=== PATIENT | female | born 1960 | race Caucasian/White ===

== ENCOUNTER 2017-05-20 18:33 | Inpatient (IN) | payer MEDICAID ==
[~2017-05-20] VITALS: Ht 157.5 cm; Wt 40.8 kg
[2017-05-20 18:42] VITALS: BP 145/99
--- NOTE | 2017-05-20 18:54 | NUR ---
WHEEL CHAIR ASSISTED TO BED 12
--- NOTE | 2017-05-20 18:55 | NUR ---
BIB FROM [facility] BY RESCARE BY DESKTOP SUPPORT CONSULTANT WITH C/O INTERMITTENT NOT EATING, DRINKING X 2 WKS HX; ENCEPHALOPATHY, PROFOUND MENTAL RETARDATION, JOINT DEGENERATION, KYPHOSCOLIOSIS, CHRONIC CONSTIPATION, HTN, CHF, CHRONIC LUNG DZ, DERMATITIS, DYSMENORRHEA, HX OF PICA, GERD, SPASTICITY RX; LORATADINE, METOPROLOL, SIMVASTATIN, TRAVATANZ -- DENIES N/V/D; SKIN IS PINK/WARM/DRY; LUNGS CLEAR BL; HR EVEN AND REGULAR; PT DENIES ANY FEVER, CP, SOB, OR COUGH AT THIS TIME; PATIENT STATES PAIN OF 0/10 AT THIS TIME; VSS; PATIENT POSITIONED FOR COMFORT; HOB ELEVATED; BEDRAILS UP X2; BED DOWN. ER MD MADE AWARE OF PT STATUS.
[2017-05-20] MEDS ORDERED: DOCU-299 PO (20:25)
[2017-05-20] MEDS ORDERED: LORA10TA19 PO (20:25)
[2017-05-20] MEDS ORDERED: METO-485 PO (20:25)
[2017-05-20] MEDS ORDERED: MULT-405 PO (20:25)
[2017-05-20] MEDS ORDERED: METO25TA PO (20:25)
[2017-05-20] MEDS ORDERED: ESOM40EC PO (20:25)
[2017-05-20] MEDS ORDERED: FERR325E14 PO (20:25)
[2017-05-20] MEDS ORDERED: CALC-751 PO (20:25)
[2017-05-20] MEDS ORDERED: SIMV10TA1 PO (20:25)
[2017-05-20] MEDS ORDERED: MIRABULK PO (20:25)
[2017-05-20] MEDS ORDERED: TRAV5SOL OP (20:33)
[2017-05-20] MEDS ORDERED: ACET-1082 PO (20:33)
[2017-05-20] MEDS ORDERED: HYDR-133 PO (20:33)
[2017-05-20] MEDS ORDERED: [UNRECOGNIZED DRUG - CODE] PO (20:33)
[2017-05-20] MEDS ORDERED: NACL 0.9% 1,000 ML IV ONE (21:00)
--- NOTE | 2017-05-20 21:25 | NUR ---
PIV STARTED WITHOUT PROBLEMS.
--- NOTE | 2017-05-20 21:40 | NUR ---
# 16 FR Urinary catheter inserted utilizing sterile technique. Immediate return of 50 ml, Clear yellow urine noted. Urine sample collected and sent to lab. Pt tolerated procedure.
[2017-05-20 21:52] LABS: BASOPHILS # (AUTO) 0.1 K/uL (0.00-0.22); BASOPHILS % (AUTO) 0.8 % (0.0-2.0); EOSINOPHILS # (AUTO) 0.2 K/uL (0-0.4); EOSINOPHILS % (AUTO) 1.2 % (0.0-4.0); HEMATOCRIT 36.1 % (36-48); HEMOGLOBIN 11.3 g/dL (12.0-16.0); LYMPHOCYTES # (AUTO) 1.6 K/uL (2.5-16.5); LYMPHOCYTES % (AUTO) 10.2 % (20.5-51.1); MEAN CORPUSCULAR HEMOGLOBIN 22 pg (27-31); MEAN CORPUSCULAR HGB CONC 31 g/dL (33-37); MEAN CORPUSCULAR VOLUME 70.6 fL (80-94); MONOCYTES # (AUTO) 1.6 K/uL (0.8-1.0); MONOCYTES % (AUTO) 9.8 % (1.7-9.3); NEUTROPHILS # (AUTO) 12.7 K/uL (1.8-7.7); PLATELET COUNT (AUTO) 475 K/uL (140-450); RED BLOOD CELL COUNT(AUTO) 5.11 MIL/uL (4.20-5.40); RED CELL DISTRIBUTION WIDTH 20.6 % (11.6-13.7); WHITE BLOOD COUNT (AUTO) 16.2 K/uL (4.8-10.8)
[2017-05-20 22:24] LABS: ALBUMIN 2.7 g/dL (3.4-5.0); ANION GAP 14.8 (8-16); CARBON DIOXIDE 28.2 mmol/L (21-32); CREATININE 0.8 mg/dL (0.6-1.3); TOTAL BILIRUBIN 0.2 mg/dL (0.0-1.0)
[2017-05-20 22:45] LABS: APPEARANCE,URINE SL CLOUDY (CLEAR); BILIRUBIN,URINE NEGATIVE (NEGATIVE); BLOOD, URINE NEGATIVE (NEGATIVE); COLOR,URINE YELLOW (YELLOW); LEUKOCYTE ESTERASE ,URINE NEGATIVE (NEGATIVE); NITRITE, URINE POSITIVE (NEGATIVE); UGLUCOSE NEGATIVE (NEGATIVE)
[2017-05-20 22:57] LABS: RBC,URINE 0-5 (RARE) /HPF (0-5); WBC,URINE 0-5 (RARE) /HPF (0-5)
--- NOTE | 2017-05-20 23:35 | NUR ---
Donn lopez in [facility] - 05/21/17 at 0009 by DICK PT RETURN FROM CT
--- NOTE | 2017-05-20 23:50 | NUR ---
PT TAKEN TO CT
--- NOTE | 2017-05-21 00:06 | NUR ---
PT RETURN FROM CT
[2017-05-21] MEDS ORDERED: ONDANSETRON 4 MG/2 ML VIAL IVP PRN (01:25)
[2017-05-21] MEDS ORDERED: HYDROcodone/APAP 7.5/325 MG 1 TAB PO PRN (01:25)
[2017-05-21] MEDS ORDERED: ACETAMINOPHEN 325 MG TAB PO PRN (01:25)
[2017-05-21 01:50] VITALS: BP 126/71
--- NOTE | 2017-05-21 01:50 | NUR ---
Admitted from ER TO MED SURGICAL UNIT , with chief complaint of NO APPETITE TO EAT AND DRINK, GEN WEAKNESS FOR TWO WEEKS, 56 y/o ,Female, Cooperative, AWAKE, ALERT, APHASIC, RESPIRATION EVEN AND UNLABORED. ABDOMEN SOFT, NON-TENDER, WITH POSITIVE BOWEL SOUNDS ON ALL QUADRANTS. HEAD TO TOE ASSESSMENT DONE, NOTED REDNESS IN THE PERINEAL AREA. PATIENT IS ABLE TO TRANSFER SELF FROM BED TO W/C WITH ASSISTANCE, USES WHEELCHAIR BUT ABLE TO MOVE SELF IN BED. SPASTICITY NOTED ON BILATERAL FEET. ADMISSION DATA OBTAINED FROM CAREGIVER RACHELLE AND FROM PATIENT MED RECORD. NO APPEARANCE OF PAIN NOTED, 0/10. oriented to call light, bed, phone,television, bathroom, smoking policy,visiting hours, procedures, ID bracelet on. Belongings list checked.
--- NOTE | 2017-05-21 01:54 | NUR ---
Patient will be admitted to care of DR LONDON. Admited to MS. Will go to room 108A. Belongings list completed. Report to TANVIR.
--- NOTE | 2017-05-21 02:00 | NUR ---
Patient's Plan of Care was discussed and reviewed with POLICE SURGEON: ROB
[2017-05-21 02:19] LABS: CHOL/HDL RATIO 2.7 (1-4.5); FREE T4 (FREE THYROXINE) 1.41 ng/dL (0.76-1.46); MAGNESIUM 1.7 mg/dL (1.8-2.4); PHOSPHORUS 3.5 mg/dL (2.5-4.9); THYROID STIMULATING HORMONE 2.59 uIU/mL (0.34-3.74)
[2017-05-21] MEDS: NACL 0.9% 1,000 ML IV SCH ×2 (02:20→21:22)
[2017-05-21 02:24] LABS: PROTHROMBIN TIME 11.9 secs (10.8-13.4)
[2017-05-21 02:40] LABS: BARBITURATE, URINE NEG. ng/ml (NEG <=200); BENZODIAZEPINE, URINE NEG. ng/mL (NEG <=200); CANNABINOID, URINE NEG. ng/mL (NEG <=50); COCAINE, URINE NEG. ng/mL (NEG <=300); OPIATE, URINE NEG. ng/mL (NEG <=2000); PHENCYCLIDINE SCREEN,URINE NEG. ng/mL (NEG <=25)
[2017-05-21] MEDS ORDERED: KCL 20 MEQ/WATER INJ PREMIX 200 ML IV SCH (04:30)
[2017-05-21] MEDS ORDERED: MAG SULF 2000 MG/WATER PREMIX 50 ML IV SCH (04:30)
[2017-05-21] MEDS: PANTOPRAZOLE 40 MG TABEC PO SCH (05:55)
[2017-05-21 06:07] VITALS: BP 131/84
[2017-05-21 07:04] LABS: HEMATOCRIT 36.2 % (36-48); HEMOGLOBIN 11.7 g/dL (12.0-16.0); MEAN CORPUSCULAR HEMOGLOBIN 23 pg (27-31); MEAN CORPUSCULAR HGB CONC 33 g/dL (33-37); MEAN CORPUSCULAR VOLUME 71.5 fL (80-94); PLATELET COUNT (AUTO) 433 K/uL (140-450); RED BLOOD CELL COUNT(AUTO) 5.05 MIL/uL (4.20-5.40); RED CELL DISTRIBUTION WIDTH 19.4 % (11.6-13.7); WHITE BLOOD COUNT (AUTO) 14.2 K/uL (4.8-10.8)
--- NOTE | 2017-05-21 07:20 | NUR ---
AWAKE, RESPIRATION EVEN AND UNLABORED. CONDITION REMAIN STABLE. ENDORSED TO AM NURSE FOR CONTINUITY OF CARE.
[2017-05-21 07:27] LABS: CARBON DIOXIDE 27.2 mmol/L (21-32); CREATININE 0.7 mg/dL (0.6-1.3); POTASSIUM 3.2 mmol/L (3.5-5.1)
--- NOTE | 2017-05-21 07:30 | NUR ---
RECEIVED PATIENT REPORT AT BEDSIDE FROM NIGHT NURSE, PATIENT IS APHASIC, NONVERBAL, AND UNABLE TO FOLLOW SIMPLE COMMANDS. NOTED IV ACCESS ON THE LEFT AC WITH MEDICATION INFUSING WELL. NOTED PERINEAL SWELLING AND ERYTHEMA FROM INCONTINENT DERMATITIS. PATIENT HAS NO C/O PAIN, FLACC-0. SAFETY AND FALL PRECAUTIONS IN PLACE. BED IN LOW POSITION WITH CALL LIGHT WITHIN REACH.
[2017-05-21 07:35] LABS: MAGNESIUM 1.7 mg/dL (1.8-2.4); PHOSPHORUS 3.7 mg/dL (2.5-4.9)
[2017-05-21 08:09] LABS: EOSINOPHILS % (MANUAL) 3 % (0-4); LYMPHOCYTES % (MANUAL) 9 % (20-46); MONOCYTES % (MANUAL) 9 % (5-12)
[2017-05-21 09:00] VITALS: BP 135/85
[2017-05-21] MEDS: MULTIVITAMIN 1 TAB PO SCH (09:00)
[2017-05-21] MEDS: CALCIUM CARB/VIT-D 500 MG/200 IU 1 TAB PO SCH ×2 (09:00→21:00)
[2017-05-21] MEDS: LACTOBACILLUS RHAMNOSUS GG 1 EACH CAP PO SCH (09:00)
[2017-05-21] MEDS: LORATADINE 10 MG TAB PO SCH (09:00)
[2017-05-21] MEDS ORDERED: DOCUSATE SODIUM 100 MG GELCAP PO SCH (09:00)
[2017-05-21] MEDS: POLYETHYLENE GLYCOL 17 GM/PKT PO SCH (09:00)
[2017-05-21] MEDS: FERROUS SULFATE 325 MG TABEC PO SCH ×2 (09:00→21:00)
[2017-05-21] MEDS: DOCUSATE SODIUM 100 MG GELCAP PO SCH ×2 (09:00→21:00)
[2017-05-21] MEDS: METOPROLOL 25 MG TAB PO SCH ×2 (09:10→21:23)
[2017-05-21] MEDS: LEVOFLOXACIN 250 MG/D5 PREMIX 50 ML IV SCH (09:10)
[2017-05-21] MEDS: METOCLOPRAMIDE 10 MG TAB PO SCH ×2 (09:13→21:22)
[2017-05-21] MEDS: TRIAMTERENE/HCTZ 37.5/25 MG 1 TAB PO SCH (09:16)
--- NOTE | 2017-05-21 09:20 | NUR ---
PATIENT WAS SAT UP AT HIGH FOWLERS POSITION, WHILE ADMINISTERING MEDICATIONS, PATIENT BEGAN TO GAG AND COUGH, PATIENT WAS ONLY GIVEN METOPROLOL 50 MG, MAXZIDE 37.5 MG, REGLAN 5 MG, HEPARIN 5,000 UNITS SQ, AND LEVAQUIN [address]PB[address] WILL NOTIFY [address] OF POSSIBLE SWALLOW EVAL.
--- NOTE | 2017-05-21 09:29 | NUR ---
PATIENT HAS DELAYED COUGH WHILE ADMINISTERING MEDICATIONS, DR ARE AT BED HUDDLE AT THIS TIME, PATIENT IS SAT UP IN BED FOR ASPIRATION PRECAUTIONS.
--- NOTE | 2017-05-21 10:14 | NUR ---
PATIENT HAS BEEN SCREENED AND CATEGORIZED HIGH NUTRITION RISK. PATIENT WILL BE SEEN WITHIN 1-2 DAYS OF ADMISSION. 05/21/17 - 05/22/[address]
--- NOTE | 2017-05-21 10:36 | NUR ---
ADMISSION REVIEW DONE. 09 SPOKE WITH [facility] [phone]. PER LANDON PT HAS BEEN HOSPITALIZED OR SEEN IN ED AT [facility] MULTIPLE TIMES SINCE JANUARY AND PARENTS HAVE BEEN TOLD PT MOST LIKELY HAS ABDOMINAL CA BUT A BIOPSY WAS NEVER DONE TO CONFIRM. PT IS NOW DECLINING AND REFUSES TO EAT AND HAS LOST APPROX 20# SINCE JANUARY. PARENTS ARE VERY INVOLVED AND MAKE PTS DECISIONS AND THEY HAVE VERBALIZED THAT THEY DO NO WANT ANY AGGRESSIVE CARE SUCH SURGERY OR CHEMOTHERAPY BUT WOULD LIKE A DEFINITE DIAGNOSIS. PARENTS ARE ALSO OPEN TO HAVING HOSPICE SERVICES.
--- NOTE | 2017-05-21 10:45 | NUR ---
DR HONG AWARE OF PATIENT'S DYSPHAGIA, ALSO PATIENT'S CAREGIVER FROM [facility] CALLED TO NOTIFY RN OF FAMILY CONSIDERING POSSIBLE HOSPICE FOR PATIENT. DR HONG TO FOLLOW UP WITH CM.
--- NOTE | 2017-05-21 11:35 | NUR ---
6530 RECEIVED A CALL FROM PTS FATHER OSMAN GUTHRIE. OSMAN STATED THAT HE AND HIS YVONNE WANT PT TO BE COMFORTABLE AND THEY WOULD LIKE HOSPICE SERVICES FOR [place]. OSMAN PROVIDED HIS CELL #[phone] AND YVONNE'S CELL [phone]. INFORMED OSMAN THAT I WOULD INFORM PHYSICIAN OF REQUEST FOR HOSPICE. DISCUSSED WITH HIM THAT NOT ALL AGENCIES ACCEPT [facility] AND HE SAID THAT HE HAS NO PREFERENCE TO WHICH AGENCY IS USED. INFORMED OSMAN THAT I WILL UPDATE HIM WHEN ANY ARRANGEMENTS ARE MADE.
--- NOTE | 2017-05-21 12:05 | NUR ---
PATIENT HAD A BM AND WAS GIVEN PERINEAL CARE AND CHANGE OF LINENS. PATIENT TOLERATED ACTIVITY WELL. PATIENT WAS REPOSITIONED. BED IN LOW POSITION WITH CALL LIGHT WITHIN REACH.
[2017-05-21] MEDS ORDERED: MAG SULF 2000 MG/WATER PREMIX 50 ML IV ONE (12:25)
[2017-05-21] MEDS ORDERED: POTASSIUM CHLORIDE 40 MEQ, LIDOCAINE 1% 25 MG in NACL 0.9% 250 ML IV ONE (12:25)
[2017-05-21] MEDS: Z-GUARD PASTE TP SCH (13:00)
--- NOTE | 2017-05-21 14:20 | NUR ---
PATIENT WAS REPOSITIONED, SITTING COMFORTABLY IN BED AND SHOWS NO S/S OF ACUTE DISTRESS.
--- NOTE | 2017-05-21 14:58 | NUR ---
1430 WILVER FROM [facility] HERE AND WILL ACCEPT PT. WILVER SAID WILL MEET WITH PTS PARENTS AT THEIR HOME IF THEY WISH. CALL PLACED TO OSMAN PTS FATHER AND INFORMED HIM OF ACCEPTANCE TO [facility]. OSMAN EXPRESSED HIS APPRECIATION THAT THE REQUEST FOR HOSPICE HAS BEEN EXPEDITED SO QUICKLY AND WILL BE GLAD TO MEET WITH [facility]. INFORMED LANDON ADKINS FROM [facility] ON PROGRESS OF PLAN. PER LANDON SHE PLANS TO VISIT PT TODAY APPROX [phone].
[2017-05-21 16:04] VITALS: BP 147/82
--- NOTE | 2017-05-21 19:30 | NUR ---
PATIENT REPORT GIVEN AT BEDSIDE, PATIENT ENDORSED IN STABLE CONDITION.
[2017-05-21 20:00] VITALS: BP 116/83
--- NOTE | 2017-05-21 20:00 | NUR ---
SEEN PT AWAKE, APPEARS COMFORTABLE. INITIAL ASSESSMENT DONE. VITAL SIGNS CHECKED. PT RE[POSITIONED FOR COMFORT. SAFETY REINFORCED. WILL CONTINUE TO MONITOR.
[2017-05-21] MEDS ORDERED: SIMVASTATIN 10 MG TAB PO SCH (21:00)
--- NOTE | 2017-05-21 21:20 | NUR ---
SEEN PT AWAKE. HOB ELEVATED. PT DROOLING. LOPRESSOR, ZOCOR AND REGLAN CRUSHED AND GIVEN W/ A LITTLE BIT OF APPLE SAUCE AND FOLLOWED W/ A LITTLE BIT OF WATER. SEEN PT'S MOUTH MOVE (CHEW) AND SWALLOW. ASPIRATION PRECAUTION REINFORCED. LEFT PT'S HOB ELEVATED FOR NOW. WILL CONTINUE TO MONITOR.
--- NOTE | 2017-05-22 00:05 | NUR ---
SEEN PT APPEARS ASLEEP BUT EASILY AROUSABLE. PT REPOSITION FOR COMFORT. PT KEPT COMFORTABLE.
[2017-05-22] MEDS: Z-GUARD PASTE TP SCH ×2 (01:25→13:32)
--- NOTE | 2017-05-22 04:50 | NUR ---
SEEN PT AWAKE, APPEARS UNEASY. VITAL SIGNS CHECKED. SANITATION ASSOCIATE AT BEDSIDE TO DO AM CARE. PT HAD LARGE BM.
[2017-05-22 05:00] VITALS: BP 137/90
[2017-05-22] MEDS: PANTOPRAZOLE 40 MG TABEC PO SCH (06:30)
--- NOTE | 2017-05-22 06:50 | NUR ---
SEEN PT AWAKE. PT UNABLE TO SWALLOW PILL. PT IS RISK FOR ASPIRATION. PT KEPT COMFORTABLE.
[2017-05-22 07:05] LABS: BASOPHILS % (AUTO) 0.3 % (0.0-2.0); EOSINOPHILS # (AUTO) 0.1 K/uL (0-0.4); HEMATOCRIT 35.3 % (36-48); HEMOGLOBIN 11.1 g/dL (12.0-16.0); LYMPHOCYTES # (AUTO) 1.5 K/uL (2.5-16.5); LYMPHOCYTES % (AUTO) 10.8 % (20.5-51.1); MEAN CORPUSCULAR HEMOGLOBIN 22 pg (27-31); MEAN CORPUSCULAR HGB CONC 32 g/dL (33-37); MEAN CORPUSCULAR VOLUME 71.2 fL (80-94); MONOCYTES # (AUTO) 1.1 K/uL (0.8-1.0); MONOCYTES % (AUTO) 8.2 % (1.7-9.3); NEUTROPHILS # (AUTO) 11.2 K/uL (1.8-7.7); NEUTROPHILS % (AUTO) 79.7 % (42.2-75.2); PLATELET COUNT (AUTO) 447 K/uL (140-450); RED BLOOD CELL COUNT(AUTO) 4.96 MIL/uL (4.20-5.40); RED CELL DISTRIBUTION WIDTH 20.1 % (11.6-13.7); WHITE BLOOD COUNT (AUTO) 14.1 K/uL (4.8-10.8)
[2017-05-22 07:10] LABS: ANION GAP 15.2 (8-16); CARBON DIOXIDE 25.3 mmol/L (21-32); CREATININE 0.7 mg/dL (0.6-1.3); POTASSIUM 3.5 mmol/L (3.5-5.1)
--- NOTE | 2017-05-22 07:25 | NUR ---
REPORT GIVEN TO DAYSHIFT NURSE.
--- NOTE | 2017-05-22 07:30 | NUR ---
RECEIVED PATIENT REPORT AT BEDSIDE FROM NIGHT NURSE, PATIENT IS APHASIC, NONVERBAL, AND UNABLE TO FOLLOW SIMPLE COMMANDS. NOTED IV ACCESS ON THE LEFT AC DISCONTINUED WITH CANNULA INTACT. NOTED PERINEAL SWELLING AND ERYTHEMA FROM INCONTINENT DERMATITIS. PATIENT HAS NO C/O PAIN, FLACC-0. SAFETY AND FALL PRECAUTIONS IN PLACE. BED IN LOW POSITION WITH CALL LIGHT WITHIN REACH.
[2017-05-22 07:58] VITALS: BP 157/87
[2017-05-22] MEDS: MULTIVITAMIN 1 TAB PO SCH (09:00)
[2017-05-22] MEDS: DOCUSATE SODIUM 100 MG GELCAP PO SCH (09:00)
[2017-05-22] MEDS: CALCIUM CARB/VIT-D 500 MG/200 IU 1 TAB PO SCH (09:00)
[2017-05-22] MEDS: POLYETHYLENE GLYCOL 17 GM/PKT PO SCH (09:00)
[2017-05-22] MEDS: FERROUS SULFATE 325 MG TABEC PO SCH (09:00)
[2017-05-22] MEDS: LORATADINE 10 MG TAB PO SCH (09:00)
[2017-05-22] MEDS: LEVOFLOXACIN 250 MG/D5 PREMIX 50 ML IV SCH (09:19)
[2017-05-22] MEDS: TRIAMTERENE/HCTZ 37.5/25 MG 1 TAB PO SCH (09:20)
[2017-05-22] MEDS: METOCLOPRAMIDE 10 MG TAB PO SCH (09:20)
[2017-05-22] MEDS: METOPROLOL 25 MG TAB PO SCH (09:20)
[2017-05-22] MEDS: LACTOBACILLUS RHAMNOSUS GG 1 EACH CAP PO SCH (09:20)
--- NOTE | 2017-05-22 09:30 | NUR ---
HOB IS IN HIGH FOWLERS, ADMINISTERED SOME OF PATIENT SCHEDULED MEDICATIONS, PATIENT BEGAN TO HAVE DIFFICULTY SWALLOWING, ADMINISTERED MEDICATIONS WERE CRUSHED AND GIVEN WITH SMALL BITES OF APPLESAUCE, INTERMITTENTLY GIVEN SIPS OF MILK. PATIENT DOES WELL WITH ADMINISTERING SLOWLY. NEW IV WAS SUCCESSFULLY ATTEMPTED ON THE LEFT HAND 22G. IV ABX IS INFUSING WELL. ALL NEEDS MET AT THIS TIME.
--- NOTE | 2017-05-22 12:20 | NUR ---
PATIENT IS BEING ASSISTED WITH EATING. PATIENT SITTING IN HIGH FOWLERS POSITION, TOLERATING DIET WELL WITH SMALL BITES AND INTERMITTENT SIPS OF MILK.
--- NOTE | 2017-05-22 13:20 | NUR ---
PATIENT RESTING IN BED COMFORTABLY AND SHOWS NO S/S OF ACUTE DISTRESS AT THIS TIME.
--- NOTE | 2017-05-22 14:15 | NUR ---
GAVE REPORT TO SAGAR WADE AND VERBALIZED UNDERSTANDING OF CONTINUITY OF CARE, PATIENT IS TO BE GOING TO ROOM 114A , I ASKED SAGAR WHAT WILL BE THE PATIENT'S DR AND SHE STATED, "IM NOT SURE."
--- NOTE | 2017-05-22 14:28 | NUR ---
05/22/17 RD INITIAL ASSESSMENT COMPLETED PLEASE REFER TO NUTRITION ASSESSMENT UNDER CARE ACTIVITY FOR ESTIMATED NUTRITIONAL NEEDS. 1. CONTINUE PUREE DIET TOLERATED 2. RECOMMEND TO FOLLOW PT WISHES IN ACCORDANCE TO PALLIATIVE CARE 3. RD TO FOLLOW-UP 2-3 DAYS, HIGH RISK LEANDER SONI RD
--- NOTE | 2017-05-22 14:30 | NUR ---
NOTIFIED DR HONG OF PATIENT'S MAGNESIUM OF 1.7, DR TO PLACE ORDERS.
--- NOTE | 2017-05-22 14:41 | NUR ---
Sergei MCGEE FROM [facility] HERE AND CONFIRMED THAT PT WILL TRANSFER TO [facility] TODAY WITH [facility] PICKING PT UP BETWEEN 6 AND 7PM.
--- NOTE | 2017-05-22 15:00 | NUR ---
LATE ENTRY FOR 05/21/17 LANDON CM FROM [facility] HERE TO VISIT WITH PT. LANDON INFORMED OF [facility] HOSPICE EVAL AND THAT [facility] WILL MEET WITH PT'S PARENTS TODAY. LANDON EXPRESSED HER APPRECIATION AND STATED THAT THEY HAVE BEEN TRYING TO GET PT SET UP WITH HOSPICE SINCE JANUARY BUT WHENEVER PT WAS SENT TO ANOTHER HOSPITAL THEY WOULD NOT ADMIT PT AND SENT HER BACK TO ALF WHERE THEY CANNOT HAVE DNR CLIENTS. TODAY 05/22/17 Paty INFORMED LANDON THAT PT WILL BE TRANSFERRED TODAY TO [facility] WITH [facility].
[2017-05-22 16:00] VITALS: BP 128/79
--- NOTE | 2017-05-22 18:00 | NUR ---
TRANSPORT CAME TO [facility] COORDIN[facility] PATIENT, PATIENT HAS BEEN DISCHARGED, ALL PAPERWORK SIGNED BY TWO RN'S, PATIENT IS UNABLE TO SIGN PAPERWORK BC PATIENT IS UNABLE TO COMPREHEND, ALL BELONGINGS WITH PATIENT, IV DISCONTINUED WITH CANNULA INTACT, WRISTBANDS REMOVED, PATIENT LEFT UNIT IN STABLE CONDITION WITH TRANSPORT.
== END 2017-05-22 18:00 | disposition hospice, inpatient (51) | DRG 240 ==
LOC: MED 18:33 → MTU 05-21 01:25
PROVIDERS: ADMIT Family Medicine Sports Medicine; ATTEND Family Medicine Sports Medicine
DX: C18.9 Malignant neoplasm of colon, unspecified (principal); E43 Unspecified severe protein-calorie malnutrition; G93.40 Encephalopathy, unspecified; E83.42 Hypomagnesemia; I11.0 Hypertensive heart disease with heart failure; I50.9 Heart failure, unspecified; M41.9 Scoliosis, unspecified; F73 Profound intellectual disabilities; Z66 Do not resuscitate; Z51.5 Encounter for palliative care; N39.0 Urinary tract infection, site not specified; D64.9 Anemia, unspecified; K59.09 Other constipation; N94.6 Dysmenorrhea, unspecified; G80.9 Cerebral palsy, unspecified; M19.90 Unspecified osteoarthritis, unspecified site; M62.50 Muscle wasting and atrophy, not elsewhere classified, unspecified site; E11.9 Type 2 diabetes mellitus without complications; K63.5 Polyp of colon; K21.9 Gastro-esophageal reflux disease without esophagitis; E87.6 Hypokalemia; Z88.6 Allergy status to analgesic agent; Z88.8 Allergy status to other drugs, medicaments and biological substances; Z90.710 Acquired absence of both cervix and uterus; Z68.1 Body mass index [BMI] 19.9 or less, adult; Z79.899 Other long term (current) drug therapy
CPT/HCPCS: 36415; 71045; 71250; 80048; 80053; 80305; 81001; 82150; 83036; 83690; 83735; 83880; 84100; 84439; 84443; 84484; 85025; 85610; 85730; 87040; 87081; 87086; 93005; 96360; 99285; C1758; J1644; J1956; J2001; J3475; J3480; J7030; J8597; Q0092